=== PATIENT | male | born 1940 | race Caucasian/White ===

== ENCOUNTER 2019-05-31 11:02 | Inpatient (IN) | payer MEDICARE, SELFPAY ==
[2019-05-31] VITALS (14 sets, daily range): BP systolic 90–138; BP diastolic 62–86; PULSE 58–87; RESP 14–22; TEMP 36.6–36.9; O2SAT 95–100; BMI 25.2
--- NOTE | 2019-05-31 | ECHO_ITS ---
Patient Info Name: Maxwell Thomas Age: 79 years : 1940 Gender: Male Ht: 67 in Wt: 161 lbs BSA: 1.87 m2 HR: 89 bpm BP: 131 / 69 mmHg Heart Rhythm: Sinus Rhythm Technical Quality: Good Exam Date: 05/31/2019 3:59 PM Exam Location: [facility] Pulmonary Exam Room: 232 Patient Status: Inpatient Admit Date: 05/31/2019 Staff Ordering Physician: Johnson Escalona MD Medical Support Assistant: Cherelle Garcia RCS Attending Provider: Carlos Enrique Scales MD Referring Physician: Iqra BACK; Exam Type: CA echo doppler color flow Study Info Indications - cad stent mr Complete two-dimensional, color flow and Doppler transthoracic echocardiogram is performed. Summary 1. Left ventricular systolic function is normal, estimated at 65-70%. 2. There is moderate concentric increased left ventricular wall thickness. 3. Left atrial chamber dimension is mildly enlarged. 4. There is severe aortic valve sclerosis. 5. There is severe aortic valve stenosis with a peak velocity of 372 cm/s, mean gradient of 31 mmHg, and aortic valve area of 1.0 cm2. Left Ventricle Left ventricular systolic function is normal, estimated at 65-70%. There is moderate concentric increased left ventricular wall thickness. The left ventricular diastolic function is grade I diastolic dysfunction. Right Ventricle Right ventricular chamber dimension is normal. Left Atria Left atrial chamber dimension is mildly enlarged. Right Atria Right atrial chamber dimension is normal. Aortic Valve The aortic valve is trileaflet. There is severe aortic valve sclerosis. There is severe aortic valve stenosis with a peak velocity of 372 cm/s, mean gradient of 31 mmHg, and aortic valve area of 1.0 cm2. Pulmonic Valve The pulmonic valve is not well visualized. Mitral Valve The mitral valve has normal leaflets and calcified annulus. There is trace mitral valve regurgitation. Tricuspid Valve The tricuspid valve leaflets are normal. Pericardium/Pleural The pericardium appears normal. Aorta The aortic root size at the sinus of Valsalva is normal. Left Ventricular Outflow Tract Name Value Normal LVOT 2D LVOT Diameter 2.1 cm LVOT Doppler LVOT Peak Velocity 104 cm/s LVOT Peak Gradient 4 mmHg LVOT Mean Gradient 2 mmHg LVOT VTI 28 cm LVOT VTI/AV VTI Ratio 0.3 LVOT Stroke Volume 101 ml LVOT CO 15.5 l/min LVOT CI 8.3 l/min/m2 Pulmonic Valve Name Value Normal PV Doppler PV Peak Velocity 125 cm/s PV Peak Gradient 5 mmHg Mitral Valve Name
--- NOTE | ~2019-05-31 | XR_ITS ---
EXAMINATION: XR chest 2V DATE: 05/31/2019 11:24 INDICATION: Chest pain TECHNIQUE: PA and lateral views of the chest are obtained. COMPARISON: 01/07/2019 FINDINGS: The lungs are free of acute opacities. A stable opacity is present in the left upper lobe w hich has been previously evaluated by CT. There is no pleural effusion or pneumothorax. The cardiomed iastinal silhouette is normal. There is moderate thoracic spondylosis. The previously identified larg e bore right subclavian catheter has been removed. IMPRESSION: 1. No acute cardiopulmonary abnormality. 2. Chronic opacity of the left upper lobe, not significantly changed but concerning for malignancy. Reviewed, dictated and finalized at location B. IMPRESSION: 1. No acute cardiopulmonary abnormality. 2. Chronic opacity of the left upper lobe, not significantly changed but concer terence for malignancy.
--- NOTE | 2019-05-31 11:11 | ED.CHESTPAIN ---
HPI - Chest Pain General Chief Complaint: Chest Pain Stated Complaint: chest pain x 3days Time Seen by Provider: 05/31/19 11:08 Source: patient, family and RN notes reviewed Mode of arrival: ambulatory Limitations: no limitations History of Present Illness HPI narrative: A 79 y/o male presents to the ED with worsening, intermittent, lt CP for the past week. He states that his first episode of CP was roughly 1 week ago when he was walking with his . He reports that the pain lasted roughly 5-10 minutes and resolved when he stopped to rest. He notes that this occurred 3 times during that walk. He states that over the past couple days he has had intermittent CP with associated SOB. He reports that this morning the pain got more severe and he became diaphoretic, so he took a Nitro which resolved his symptoms, and then came into the ED. He also notes that he has been taking his Plavix as prescribed but that he hasn't been taking any Aspirin. He denies any N/V/D, fevers, cough, sore throat, rhinorrhea, or nasal congestion. MD complaint: chest pain Pertinent past history: coronary artery disease Onset (ago): week(s) (1) Timing of current episode: episodic and now resolved Onset: during exertion Pain location: left chest Pain radiation: none Relieving factors: nitroglycerin and rest Exacerbating factors: exertion Associated symptoms: diaphoresis (resolved) and dyspnea (resolved) Treatment prior to arrival: nitroglycerin Risk Factors Coronary artery disease risk factors: hyperlipidemia Related Data Home Medications Medication Instructions Recorded Confirmed Rizwana-Nelly Rx 1 tablet PO QNOON 01/07/19 05/31/19 acyclovir 400 mg PO TIDWM 01/07/19 05/31/19 amlodipine 10 mg PO QNOON 01/07/19 05/31/19 atorvastatin 40 mg PO HS 01/07/19 05/31/19 calcitriol 0.25 mcg PO DAILY 01/07/19 05/31/19 cholecalciferol (vitamin D3) 2,000 unit PO QAM 01/07/19 05/31/19 cyanocobalamin (vitamin B-12) 1,000 mcg PO QAM 01/07/19 05/31/19 dexamethasone 20 mg PO WEEKLY 01/07/19 05/31/19 finasteride 5 mg PO HS 01/07/19 05/31/19 pantoprazole 40 mg PO QAM 01/07/19 05/31/19 sennosides-docusate sodium 1 tablet PO QNOON 01/07/19 05/31/19 [Senna-S] bortezomib [Velcade] 0.875 mg SUBCUT WEEKLY 05/31/19 05/31/19 clopidogrel 75 mg PO QNOON 05/31/19 05/31/19 Allergies Allergy/AdvReac Type Severity Reaction Status Date / Time No Known Allergies Allergy Verified 05/31/19 11:14 Review of Systems Review of Systems: All systems reviewed & are unremarkable except as noted in HPI and below Constitutional: Constitutional: Denies fever(s) ENT: Denies nasal congestion, Denies nasal discharge and Denies sore throat Cardiovascular: Cardiovascular: Reports chest pain (lt - resolved) and Reports diaphoresis (resolved) Respiratory: Respiratory: Denies cough and Reports dyspnea (resolved) Gastrointestinal: Gastrointestinal: Denies diarrhea, Denies nausea and Denies vomiting [facility] Past Medical History Medical History (Updated 05/31/19 @ 17:40 by Fabiola Love MD) Benign prostatic hyperplasia Coronary artery disease : Right coronary artery stent 2003. : Drug-eluting stent to proximal LAD 01/08/2019. End-stage renal disease on peritoneal dialysis : Patient of Dr. Vargas Love. GERD (gastroesophageal reflux disease) Hyperlipidemia Hypertension Mass of lung : Left upper lobe mass, stable on imaging. : Just monitoring; has not been biopsied. Multiple myeloma : On weekly subcutaneous injections. : Patient of Dr. Víctor Mitchell. Neuropathy associated with monoclonal protein Osteoarthritis Surgical History Surgical History (Updated 06/04/19 @ 11:24 by Johnson Felix MD) History of herniorrhaphy History of tonsillectomy Hx of CABG S/P AVR (aortic valve replacement) Status post left partial knee replacement Family History Family History (Updated 05/31/19 @ 13:09 by Emely Meneses PA-C) Father Acute myocardial infarction Mother DVT (
--- NOTE | 2019-05-31 11:12 | ECG_ITS ---
Measurements Intervals [place] Rate: 70 P: 71 OK: 159 QRS: 235 QRSD: 132 T: 49 QT: 421 QTc: 457 Interpretive Statements SINUS RHYTHM ATRIAL PREMATURE COMPLEX RIGHT BUNDLE BRANCH BLOCK ABNORMAL ECG Electronically Signed On 05-31-2019 13:03:47 CDT by Elias Metzger D.O.
[2019-05-31 11:24] LABS: Basophils Percent Auto 0.5 % (0.2-1.2); Eosinophils Absolute Auto 0.1 K/mm3 (0-0.3); Eosinophils Percent Auto 1.6 % (0-4.4); Hematocrit 38.8 % (42.0-52.0); Hemoglobin 12.4 g/dL (14.0-18.0); Immature Granulocyte Absolute 0.06 K/mm3 (0.00-0.031); Immature Granulocyte Percent A 0.8 % (0-0.5); Lymphocytes Absolute Auto 0.62 K/mm3 (0.9-3.2); Lymphocytes Percent Auto 8.1 % (18.3-44.2); Mean Corpuscular Hemoglobin 34.5 pg (26-34); Mean Corpuscular Volume 108.1 fl (80-100); Mean Platelet Volume 10.5 fl (7.4-10.4); Monocytes Absolute Auto 0.8 K/mm3 (0.1-0.6); Monocytes Percent Auto 9.8 % (2.6-8.5); Neutrophils Absolute Auto 6.1 K/mm3 (1.3-6.7); Neutrophils Percent Auto 79.2 % (45.5-73.1); Platelet Count Result 215 k/mm3 (150-375); Red Blood Count 3.59 M/mm3 (4.6-6.20); Red Cell Distribution Width 11.9 % (11.5-14.5); White Blood Count 7.7 K/mm3 (4.5-10.0)
--- NOTE | 2019-05-31 11:26 | PC.NURSE ---
PT BACK FROM XRAY ON PRODUCT SAFETY COORDINATOR.
[2019-05-31 11:34] LABS: INR 0.8; Prothrombin Time 11.1 Seconds (11.1-14.7)
[2019-05-31 11:35] LABS: Partial Thromboplastin Time 23.4 SECONDS (22.3-36.8)
[2019-05-31 11:38] LABS: Blood Urea Nitrogen 95 mg/dL (9-20); Calcium 7.3 mg/dL (8.4-10.2); Carbon Dioxide 26 mmol/L (22-30); Chloride 98 mmol/L (98-107); Estimated CRCL calculation 6 ml/min; Estimated Glomerular Filt Rate 6; Glucose 95 mg/dL (75-110); Potassium 3.8 mmol/L (3.4-5.0); Sodium 136 mmol/L (137-145)
[2019-05-31] MEDS: ASPIRIN 81 MG CHEWABLE TABLET 324 MG PO (11:46)
[2019-05-31 11:53] LABS: Troponin I 0.087 ng/mL (0.000-0.034)
[2019-05-31] MEDS: NITROGLYCERIN OINTMENT 1 INCH DOSE TRANSDERM (12:08)
--- NOTE | 2019-05-31 12:36 | PC.NURSE ---
PT REPORT SENT TO IMU.
--- NOTE | 2019-05-31 13:30 | PM.IMHP ---
H&P: HPI History of Present Illness Chief complaint: Chest pain. 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 Since his most recent stent placement, he has had intermittent chest discomfort which he has been attributed to indigestion. He is a very active gentleman, and use to hike up to 12 miles per day. He still walks frequently, and several days ago while out walking he had to stop 3 separate times within 1 mile, resting 5 to 10 minutes each time due to pressure, mainly in the left anterior chest. He was also feeling short of breath at that time. Over the last 2 days, he has had recurrent chest pressure with occasional shortness of breath and sweats today simply well walking around the home. Symptoms are similar to when he was here in January prior to his stent placement. Currently he is not experiencing any discomfort. He denies fever, chills, cold and flu symptoms, palpitations, pleuritic pain, nausea, and vomiting. No lower extremity edema, calf pain, or tenderness. No history of venous thromboembolism. Review of Systems Review of Systems: Narrative: Twelve systems were reviewed with pertinent positives and negatives as per HPI. No fever or chills. No recent cold or flu symptoms. No dysphagia. He has recently switched to peritoneal dialysis, and reports frequent cramps during his treatments. He was helpful he would have left symptoms with that when compared hemodialysis, but he has not noticed such as of yet. Appetite has been good. No nausea, vomiting, or diarrhea. Except as documented, all other systems were reviewed and are negative. [facility] Past Medical History Medical History (Updated 05/31/19 @ 14:10 by Emely Meneses PA-C) Benign prostatic hyperplasia Coronary artery disease : Right coronary artery stent 2003. : Drug-eluting stent to proximal LAD 01/08/2019. End-stage renal disease on peritoneal dialysis : Patient of Dr. Vargas Love. GERD (gastroesophageal reflux disease) Hyperlipidemia Hypertension Mass of lung : Left upper lobe mass, stable on imaging. : Just monitoring; has not been biopsied. Multiple myeloma : On weekly subcutaneous injections. : Patient of Dr. Víctor Mitchell. Neuropathy associated with monoclonal protein Osteoarthritis Surgical History Surgical History (Updated 05/31/19 @ 13:08 by Emely Meneses PA-C) History of herniorrhaphy History of tonsillectomy Status post left partial knee replacement Family History Family History (Updated 05/31/19 @ 13:09 by Emely Meneses PA-C) Father Acute myocardial infarction Mother DVT (deep venous thrombosis) Sibling Breast cancer Social History Social History (Updated 05/31/19 @ 14:04 by Emely Meneses PA-C) Social History: Mr. Thomas is and lives with his in [place]. 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 He has enjoyed hiking for many years, and is he and his school to move to the [facility] sometime. He is a lifelong nonsmoker and denies alcohol and drug abuse. He has a modified code, no intubation. Spiritual care concerns: No Agree to blood products: Yes Meds Home Medications and Allergies Home Medications Medication Instructions Recorded Confirmed Type Rizwana-Nelly Rx 1 tablet PO DAILY 01/07/19 01/07/19 History acyclovir 400 mg PO TID 01/07/19 01/07/19 History amlodipine 10 mg PO DAILY 01/07/19 01/07/19 History atorvastatin 40 mg PO DAILY 01/07/19 01/07/19 History calcitriol 0.25 mcg PO HS 01/07/19 01/07/19 History cholecalciferol (vitamin D3) 2,000 unit PO DAILY 01/07/19 01/07/19 History cyanocobal
[2019-05-31 15:15] LABS: Troponin I 0.103 ng/mL (0.000-0.034)
--- NOTE | 2019-05-31 15:44 | PM.CNCAR ---
Assessment and Plan Additional Plan 79-year-old man with coronary artery disease, remote history of RCA stenting and with fairly recent stenting of the proximal LAD. He enters the hospital with symptoms of dyspnea and chest pain I do not see any compelling evidence of ACS on ECG and troponins. His other major comorbidity of course is multiple myeloma with end-stage kidney disease on dialysis. Physical exam does suggest that he may have significant mitral valve disease. Will obtain a 2D Doppler echocardiogram this afternoon and further recommendations will be pending completion of that exam. Johnson Escalona MD [facility] History of Present Illness History of Present Illness Consult date/time: Date of service:05/31/19 15:44 Reason For Visit: Chest pain. Narrative: This is an 79-year-old man that I have a known history with with coronary artery disease I am seeing at the request of the hospitalist because of dyspnea and some chest pain for which he was readmitted to the hospital earlier this morning. He has a history of CAD with PCI with stenting to his mid right coronary artery in the remote past. He was stable for many years and did not have any significant difficulty and then his health declined recently when he developed unfortunately multiple myeloma and he has gone on to develop end-stage renal failure with myeloma kidney disease and is on hemodialysis. He was hospitalized here at [facility] in January of 2019 with symptoms of chest pain that were worrisome for ischemia and he was brought back for follow-up coronary angiography. He did have a new high-grade proximal LAD stenosis as well as modest RCA and mid to distal circumflex disease. The LAD lesion was felt to be the culprit for his symptomatology and this was treated successfully with a drug-eluting stent. At that time I report demonstrated that he had normal looking LV function but that I was concerned that he had catheter-induced mitral valve regurgitation. In any event he did well clinically and returns to the hospital now with symptoms of some exertional dyspnea as well as some exertional chest pain off and on as well. He states that he called our office this morning to try to get advice as to how to proceed with this particular the in the bullock virus outbreak. His try to avoid coming to the emergency room but he states that he could not get a response to his phone call so he did come to the ED to be evaluated and he was subsequently admitted. His EKG does not show any acute ST segment deviation. He does have lab data consistent with end-stage renal failure and minimal troponin elevation particularly given the fact that he has end-stage renal failure. His primary care physician is at the [facility]. When I entered the room to see him for this consultation he is resting comfortably in bed and appears to be in no distress of any kind. Review of Systems Constitutional: Constitutional: Reports no additional constitutional complaints Eyes: Eyes: Reports no additional eye complaints ENT: Reports system reviewed and no additional complaints, except as documented Cardiovascular: Cardiovascular: Reports as per HPI and Reports chest pain Respiratory: Respiratory: Reports dyspnea on exertion Gastrointestinal: Gastrointestinal: Reports no additional gastrointestinal complaints Musculoskeletal: Musculoskeletal: Reports no additional musculoskeletal complaints Integumentary/Breasts: Skin/Breast: Reports system reviewed and no additional complaints, except as docu Neurologic: Reports system reviewed and no additional complaints, except as documented Hematologic/Lymphatic: Hematologic/Lymphatic: Reports no additional hematologic/lymphatic complaints Allergic/Immunologic: Allergic/Immunologic: Reports no additional allergic/immunologic complaints PMFSH Past Medical History Medical History (Updated 05/31/19 @ 14:10 by Emely Meneses PA-C) Benign prostatic hyperplasia
[2019-05-31] MEDS: AMLODIPINE BESYLATE 5 MG TABLET 10 MG PO (17:06)
[2019-05-31] MEDS: ACYCLOVIR 400 MG TABLET PO (17:06)
[2019-05-31] MEDS: FINASTERIDE 5 MG TABLET PO (17:07)
[2019-05-31] MEDS: VITAMIN B CMPLX/VIT C/FOLIC AC 1 CAPSULE 1 CAP PO (17:07)
[2019-05-31] MEDS: SENNA/DOCUSATE SODIUM TABLET 1 TAB PO (17:07)
[2019-05-31] MEDS: CLOPIDOGREL BISULFATE 75 MG TABLET PO (17:07)
--- NOTE | 2019-05-31 17:38 | PM.CNNEP ---
Assessment and Plan Assessment and plan (1) End-stage renal disease on peritoneal dialysis: Code(s): N18.6 - End stage renal disease; Z99.2 - Dependence on renal dialysis Status: Chronic (2) Chest pain: Code(s): R07.9 - Chest pain, unspecified Status: Acute (3) Hypertension: Qualifiers: Hypertension type: essential hypertension Qualified Code(s): I10 - Essential (primary) hypertension Code(s): I10 - Essential (primary) hypertension Status: Acute (4) Multiple myeloma: Qualifiers: Multiple myeloma remission status: unspecified Qualified Code(s): C90.00 - Multiple myeloma not having achieved remission Code(s): C90.00 - Multiple myeloma not having achieved remission Status: Acute Assessment and Plan: . Additional Plan Maxwell has end-stage renal disease and is on peritoneal dialysis. I will continue his outpatient peritoneal dialysis prescription while he remains hospitalized here [facility]. His electrolytes, volume status, and clearance appear to be acceptable and although his BUN is elevated, I suspect this is due to the fact he is on chronic steroid therapy for treatment of his multiple myeloma rather than overt uremia. Cardiology has been consulted with regard to his chest pain symptoms with recommendations noted. His CKD parameters with regard to his hemoglobin, hematocrit, calcium, phosphorus...etc. all appear to be within range and I would continue his home medication regimen as is to ensure these parameters remained stable. If necessary, I will adjust his peritoneal dialysis prescription to compensate/optimize these parameters as deemed necessary. I will continue follow patient with you while remains hospitalized and make further recommendations during his hospital course. Thank you for allowing me to participate in the care this patient. History of Present Illness Reason for Consult Consult date: 05/31/19 Reason for consult: end stage renal disease Chief Complaint Chief complaint: Chest pain. History of Present Illness Narrative: The patient is a 79-year-old male with a past medical history as outlined below who presented to the [facility] ER with complaints of chest pain. According to the patinet, he has had intermittent chest discomfort for the last few months which he assumed was related to GERD/indigestion. Furthermore, he has noted that his level of physical activity has been diminished as well -- he usually walks frequently but has noted he needs to rest with walking due to left chest pressure in association with shortness of breath. In the last few days, he reports recurrent chest pressure with occasional shortness of breath with minimal exertional activities. The constellation of symptoms he has been having is similar to when he required cardiac stent placement. He denies any other systemic symptoms with regard to fever, chills, flu symptoms, palpitations, pleuritic pain, nausea, or vomiting. Renal consultation was requested due to his end-stage renal disease. The patient is quite familiar to me as I take care of his end-stage renal disease needs. The patient normally does nightly peritoneal dialysis under my care through [facility]. From a dialysis perspective, he has been doing reasonably well. He recently transitioned from back-up hemodialysis to peritoneal dialysis after his recent cardiac stent placement January. At that time, his PD catheter was not working very well but given the fact he required anti platelet therapy for his recently placed stent, surgical revision of his PD catheter was not recommended at that time. Eventually, after a sufficient amount of waiting, he underwent surgical revision of his PD catheter placement has been resumed on peritoneal dialysis therapy. He recently had his tunneled dialysis catheter removed doing it and given the necessity was not needed as he wa
[2019-05-31 17:41] LABS: Troponin I 0.106 ng/mL (0.000-0.034)
[2019-05-31] MEDS: METOPROLOL TARTRATE 12.5 MG TABLET PO (20:24)
[2019-05-31] MEDS: ATORVASTATIN 40 MG TABLET PO (20:25)
[2019-05-31] MEDS: ACETAMINOPHEN 325 MG TABLET 650 MG PO (23:28)
[2019-05-31 23:31] LABS: Hepatitis B Surface Antigen Negative (Negative)
[2019-06-01] VITALS (12 sets, daily range): BP systolic 111–144; BP diastolic 58–84; PULSE 62–89; RESP 14–20; TEMP 36.7–36.8; O2SAT 96–99
[2019-06-01 04:38] LABS: Hepatitis B Surface Anti Res Indeterminate
[2019-06-01 04:46] LABS: Hematocrit 33.6 % (42.0-52.0); Hemoglobin 11.1 g/dL (14.0-18.0); Mean Corpuscular Hemoglobin 34.9 pg (26-34); Mean Corpuscular Volume 105.7 fl (80-100); Mean Platelet Volume 10.1 fl (7.4-10.4); Platelet Count Result 189 k/mm3 (150-375); Red Blood Count 3.18 M/mm3 (4.6-6.20); Red Cell Distribution Width 11.8 % (11.5-14.5); White Blood Count 5.6 K/mm3 (4.5-10.0)
[2019-06-01 04:47] LABS: Hepatitis B Surface Antigen 0.05 S/C
[2019-06-01 05:03] LABS: Blood Urea Nitrogen 86 mg/dL (9-20); Calcium 7.3 mg/dL (8.4-10.2); Carbon Dioxide 27 mmol/L (22-30); Chloride 102 mmol/L (98-107); Estimated CRCL calculation 6 ml/min; Estimated Glomerular Filt Rate 6; Glucose 107 mg/dL (75-110); Magnesium 1.5 mg/dL (1.6-2.3); Phosphorus 7.6 mg/dL (2.5-4.5); Potassium 3.4 mmol/L (3.4-5.0); Sodium 135 mmol/L (137-145)
[2019-06-01] MEDS: ACYCLOVIR 400 MG TABLET PO (08:57)
[2019-06-01] MEDS: calcitrioL 0.25 MCG CAPSULE PO (08:58)
[2019-06-01] MEDS: CHOLECALCIFEROL 1,000 UNIT TABLET 2000 UNITS PO (08:58)
[2019-06-01] MEDS: CYANOCOBALAMIN 1,000 MCG TABLET 1000 MCG PO (08:58)
[2019-06-01] MEDS: PANTOPRAZOLE 40 MG TABLET PO (08:58)
[2019-06-01] MEDS: METOPROLOL TARTRATE 12.5 MG TABLET PO (08:59)
[2019-06-01] MEDS: MAGNESIUM SULF 1 GM/D5W 100 ML 1 GM/100 ML BAG IVPB (08:59)
[2019-06-01] MEDS: POTASSIUM CHLORIDE 20 MEQ PACKET (FOR LIQUID) PO (09:01)
[2019-06-01] MEDS: ASPIRIN 81 MG CHEWABLE TABLET PO (09:02)
--- NOTE | 2019-06-01 10:47 | PM.PNNEP ---
Progress Note: A&P Assessment and Plan (1) End-stage renal disease on peritoneal dialysis: Code(s): N18.6 - End stage renal disease; Z99.2 - Dependence on renal dialysis Status: Chronic Assessment and Plan: continue CCPD while hospitalized electrolytes, volume status, and clearance acceptable elevated BUN more a manifestation of chronic steroid therapy (for treatment of myeloma) rather than poor clearance of uremic toxins (2) Chest pain: Code(s): R07.9 - Chest pain, unspecified Status: Acute Assessment and Plan: seems unrelated to ACS Echo demonstrates significant/severe aortic stenosis - etiology of admission symptoms(?) Cardiology following evaluation to AVR needed(?) (3) Hypertension: Qualifiers: Hypertension type: essential hypertension Qualified Code(s): I10 - Essential (primary) hypertension Code(s): I10 - Essential (primary) hypertension Status: Acute Assessment and Plan: well controlled at this time follow trend of hemodynamics (4) Multiple myeloma: Qualifiers: Multiple myeloma remission status: unspecified Qualified Code(s): C90.00 - Multiple myeloma not having achieved remission Code(s): C90.00 - Multiple myeloma not having achieved remission Status: Acute Assessment and Plan: follow with Dr. Mitchell on therapy with Velcade and dexamethasone Will continue to follow. Subjective Date/time seen: 06/01/19 10:47 Tolerating peritoneal dialysis overnight without any issue or problems (seen on PD earlier this AM at ~ 9:30AM); appears to be resting without any apparent distress; no other events overnight. Exam Narrative: Exam Narrative: General: WD/WN male in NAD Heart: normal S1 and S2; no rub Lungs: clear to auscultation Abdomen: soft, nontender, nondistended, positive bowel sounds Extremities: no cyanosis or clubbing; no edema Skin: warm and dry Objective Data Vital Signs Vital Signs: Vital Signs Temp Pulse Resp BP Pulse Ox 06/01/19 08:59 67 06/01/19 08:19 36.8 C 66 20 133/60 96 06/01/19 07:59 36.8 C 67 14 133/60 06/01/19 06:00 70 06/01/19 04:00 36.7 C 89 20 111/63 97 06/01/19 02:00 66 06/01/19 00:00 66 05/31/19 23:43 36.8 C 67 20 90/62 L 95 05/31/19 22:23 36.6 C 70 20 103/86 05/31/19 22:00 65 05/31/19 20:24 70 05/31/19 20:00 69 05/31/19 19:32 36.6 C 79 20 103/86 97 05/31/19 18:00 87 05/31/19 16:00 36.6 C 61 20 138/65 97 05/31/19 14:00 58 L 05/31/19 13:34 36.9 C 63 20 131/69 100 05/31/19 13:03 72 18 102/63 97 05/31/19 12:09 66 16 122/80 97 05/31/19 11:13 73 14 97 05/31/19 11:07 36.6 C 71 22 H 135/71 96 Intake/Output Intake/Output: Intake & Output 05/29/19 05/30/19 05/31/19 06/01/19 23:59 23:59 23:59 23:59 Intake Total 350 Output Total 0 947 Balance 0 -597 Meds/Results Medications: Active Medications Generic Name Dose Route Start Last Admin Trade Name Freq PRN Reason Stop Dose Admin Acetaminophen 650 mg 05/31/19 21:32 05/31/19 23:28 Tylenol Tablet PO 650 mg Q6H PRN Administration Mild Pain (1-3) or Fever Acyclovir 400 mg 05/31/19 17:00 06/01/19 08:57 Zovirax Po PO 400 mg TIDWM FARIHA Administration Amlodipine Besylate 10 mg 05/31/19 12:00 05/31/19 17:06 Norvasc PO 10 mg NOON FARIHA Administration Aspirin 81 mg 06/01/19 08:00 06/01/19 09:02 Aspirin Chewable PO 81 mg DAILY@0800 FARIHA Administration Atorvastatin Calcium 40 mg 05/31/19 21:00 05/31/19 20:25 Lipitor PO 40 mg HS FARIHA Administration Calcitriol 0.25 mcg 06/01/19 09:00 06/01/19 08:58 Rocaltrol PO 0.25 mcg DAILY FARIHA Administration Clopidogrel Bisulfate 75 mg 05/31/19 12:00 05/31/19 17:07 Plavix PO 75 mg NOON FARIHA Administration Cyanocobalamin 1,000 mcg 06/01/19 09:00 06/01/19 08:58
--- NOTE | 2019-06-01 13:02 | WPDMODSED ---
Moderate Sedation Note-Pt Data Patient Data Diagnosis: coronary artery disease with previous PCI to RCA and LAD moderate to severe aortic valve stenosis by ECHO and physical exam symptoms of exertional dyspnea end-stage renal disease on dialysis Present Complaint: 79-year-old man with above-described cardiac history presenting with CAPONE and occasional chest pain. Has had PCIs done to RCA and LAD. Now also has evidence of significant aortic valve stenosis. Principal comorbidity is end-stage renal disease with dialysis and multiple myeloma with renal disease Procedure to be performed/Plan: right left heart catheterization Allergies Allergy/AdvReac Type Severity Reaction Status Date / Time No Known Allergies Allergy Verified 05/31/19 11:14 Home Medications Medication Instructions Recorded Confirmed Type Rizwana-Nelly Rx 1 tablet PO QNOON 01/07/19 05/31/19 History acyclovir 400 mg PO TIDWM 01/07/19 05/31/19 History amlodipine 10 mg PO QNOON 01/07/19 05/31/19 History atorvastatin 40 mg PO HS 01/07/19 05/31/19 History calcitriol 0.25 mcg PO DAILY 01/07/19 05/31/19 History cholecalciferol (vitamin D3) 2,000 unit PO QAM 01/07/19 05/31/19 History cyanocobalamin (vitamin B-12) 1,000 mcg PO QAM 01/07/19 05/31/19 History dexamethasone 20 mg PO WEEKLY 01/07/19 05/31/19 History finasteride 5 mg PO HS 01/07/19 05/31/19 History pantoprazole 40 mg PO QAM 01/07/19 05/31/19 History sennosides-docusate sodium 1 tablet PO QNOON 01/07/19 05/31/19 History [Senna-S] metoprolol tartrate 12.5 mg PO Q12HR #30 tablet 01/12/19 05/31/19 Rx nitroglycerin [Nitrostat] 0.4 mg SUBLINGUAL DIRECTED PRN 01/12/19 05/31/19 Rx #25 tablet bortezomib [Velcade] 0.875 mg SUBCUT WEEKLY 05/31/19 05/31/19 History clopidogrel 75 mg PO QNOON 05/31/19 05/31/19 History Current Medications: Active Medications Acetaminophen (Tylenol Tablet) 650 mg PO Q6H PRN PRN Reason: Mild Pain (1-3) or Fever Last Admin: 05/31/19 23:28 Dose: 650 mg Documented by: Acyclovir (Zovirax Po) 400 mg PO TIDWM [facility] Last Admin: 06/01/19 08:57 Dose: 400 mg Documented by: Amlodipine Besylate (Norvasc) 10 mg PO NOON [facility] Last Admin: 05/31/19 17:06 Dose: 10 mg Documented by: Aspirin (Aspirin Chewable) 81 mg PO DAILY@0800 [facility] Last Admin: 06/01/19 09:02 Dose: 81 mg Documented by: Atorvastatin Calcium (Lipitor) 40 mg PO HS [facility] Last Admin: 05/31/19 20:25 Dose: 40 mg Documented by: Calcitriol (Rocaltrol) 0.25 mcg PO DAILY [facility] Last Admin: 06/01/19 08:58 Dose: 0.25 mcg Documented by: Clopidogrel Bisulfate (Plavix) 75 mg PO NOON [facility] Last Admin: 05/31/19 17:07 Dose: 75 mg Documented by: Cyanocobalamin (Vitamin B-12 Tab) [facility] [place] Admin: 06/01/19 08:58 Dose: 1,000 mcg Documented by: Finasteride (Proscar) 5 mg PO DAILY@1700 [facility] Last Admin: 05/31/19 17:07 Dose: 5 mg Documented by: Metoprolol Tartrate (Lopressor) 12.5 mg PO Q12HR [facility] Last Admin: 06/01/19 08:59 Dose: 12.5 mg Documented by: Nitroglycerin (Nitrostat Subl 0.4 Mg (1/150)) 0.4 mg SUBLINGUAL Q5MIN PRN PRN Reason: Chest Pain Pantoprazole Sodium (Protonix) [facility] [place] Admin: 06/01/19 08:58 Dose: 40 mg Documented by: Senna/Docusate Sodium (Senokot S Tablet) 1 tab PO NOON [facility] Last Admin: 05/31/19 17:07 Dose: 1 tab Documented by: Vitamin B Complex/Folic Acid (Nephrocaps Softgel) 1 cap PO NOON [facility] Last Admin: 05/31/19 17:07 Dose: 1 cap Documented by: Vitamin D (Vitamin D) 2,000 [facility] [place] Admin: 06/01/19 08:58 Dose: 2,000 unit Documented by: Sedation/Anesthesia: No previous sedation/anesthesia problems (including family history). [facility] Past Medical History Medical History (Updated 05/31/19 @ 17:40 by Fabiola Love MD) Benign prostatic hyperplasia Coronary artery disease : Right coronary artery stent 2003. : Drug-eluting stent to proximal LAD 01/08/2019. End-stage renal disease on peritoneal dialysis : Patient of
--- NOTE | 2019-06-01 14:16 | WPDCARDPROC ---
Cardiac Cath Procedure Note Date of procedure:: 06/01/19 Performing physician:: Johnson Escalona MD Indication:: unstable anginal-type chest pain with CAPONE Brief clinical history:: patient with history of coronary artery disease remote history of stenting of the RCA and recent stenting of the LAD approximately 4 months ago. The patient presented with a syndrome of accelerating exertional dyspnea with chest pain and by physical exam and echo appears to have significant aortic valve stenosis. For this reason right left heart catheterization has been recommended. The patient also has end-stage renal disease and is currently on peritoneal dialysis Procedure Procedure performed:: right and left heart catheterization Sedation/Medication given:: fentanyl 50 mg Versed 2 mg case start time 1:39 p.m. case end time 2:04 p.m. sedation provided by Flavia Garcia RN, trained observer Access site:: right femoral artery and vein Estimated blood loss:: 15-20 cc Procedure note:: patient was brought to the cardiac catheterization lab in the postabsorptive state where the right femoral triangle was prepared in the usual fashion. Anesthesia was provided with 1% lidocaine infiltrated locally. Using the modified Seldinger technique the right femoral artery was punctured and a 6 Kenyan vascular sheath was placed after this a 7 Kenyan sheath was placed into the femoral vein. Right heart catheterization was then carried out using a balloon tip Girard-Chilo catheter measuring right-sided hemodynamics and determining thermodilution cardiac outputs. Following removal of Girard-Chilo catheter a double-lumen pigtail catheter was placed into the arterial circulation and into the ascending aorta. A both lumens were flushed and the catheter was placed across the stenotic aortic valve into the left ventricle Simultaneous pressures were then measured into the LV and central aorta. the aortic valve area was calculated and pullback was performed across the valve. Since the patient had left ventriculography done 4 months ago an echocardiography during this hospitalization demonstrating normal LV function I did not inject the LV again during this case. The left coronary artery was then engaged and injected using a 5 Kenyan FL4 diagnostic coronary catheter. The right coronary artery was engaged and injected using a 5 Kenyan JR4 catheter. Following this the cineangiograms were reviewed and the case was terminated. The sheath was sutured into position the patient will be taken to the holding area and systemically heparinized. Findings:: Hemodynamics: Right atrium 7 mmHg right ventricle 41 over 5, pulmonary artery 41 over 20 mean pulmonary wedge pressure 14, central aorta 126/62 left ventricle 160/0 end-diastolic 15. Thermodilution cardiac output is 5.57 liters/minute giving an index of 3. Meet mean aortic valve gradient is 29 mmHg aortic valve area calculates to 1.17 cm2 the left main coronary artery is medium in caliber there is a high-grade 90% stenosis in the distal aspect of the left main. This lesion was not present in January of 2019 the LAD is of medium caliber vessel extending down to around the apex. The proximal stented segment in the LAD is widely patent. There is MISSY 3 flow throughout the vessel. The circumflex is a medium caliber artery giving rise to small marginal branches there is a stenosis in the distal circumflex prior to the bifurcation of 2 distal branches of about 80%. The right coronary is a large caliber vessel with a stent in the 2nd portion which is nicely patent there is hazy complex looking stenosis in the RCA just distal to the stented area. Angiographically is appears to be a 60-70% lesion. The PDA and PL branches are free of significant lesions. Conclusion:: Coronary artery disease with short interval development of high-grade distal left main stenosis compared with angiography that was performed in January of 2019. Pat
[2019-06-01] MEDS: HEPARIN SOD/D5W 100 UNITS/ML 25,000 UNITS/250 ML BAG 10 UNITS (15:47)
--- NOTE | 2019-06-22 14:35 | PM.TDS ---
Transfer Discharge Sum: Prov Provider Date of admission: 06/01/19 15:24 Transfer date 06/01/19 Transfer to [facility]. Accepting physician is Dr. Johnson Saini. Transfer order placed by Cardiology No visit by Hospitalist team on 06/01/19 as patient was transferred to OSH prior to being seen. Primary care physician: Johnson Felix MD Admitting clinician: Carlos Enrique Scales MD Consults: 05/31/19 Consult to Physician Routine Comment: OFFICE NOTIFIED OF CONSULT Consulting Provider: Fabiola Love bail bond agent/MD group to consult: Ivan Reason for consultation: PD Has provider been notified: Yes 05/31/19 12:28 Consult to Physician Routine Comment: Consulting Provider: Johnson Escalona Reason for consultation: Unstable Angina Has provider been notified: Yes DS: Diagnosis Admitting Diagnosis Admitting Diagnosis: Atherosclerosis of [place] coronary artery of transplanted heart with unstable angina Transfer Discharge Sum: Med Medications Active and Home Medications: Home Medications Rizwana-Nelly Rx 1 tablet PO QNOON 01/07/19 [History Confirmed 05/31/19] acyclovir 400 mg PO TIDWM 01/07/19 [History Confirmed 05/31/19] amlodipine 10 mg PO QNOON 01/07/19 [History Confirmed 05/31/19] atorvastatin 40 mg PO HS 01/07/19 [History Confirmed 05/31/19] calcitriol 0.25 mcg PO DAILY 01/07/19 [History Confirmed 05/31/19] cholecalciferol (vitamin D3) 2,000 unit PO QAM 01/07/19 [History Confirmed 05/31/19] cyanocobalamin (vitamin B-12) 1,000 mcg PO QAM 01/07/19 [History Confirmed 05/31/19] dexamethasone 20 mg PO WEEKLY 01/07/19 [History Confirmed 05/31/19] finasteride 5 mg PO HS 01/07/19 [History Confirmed 05/31/19] pantoprazole 40 mg PO QAM 01/07/19 [History Confirmed 05/31/19] sennosides-docusate sodium [Senna-S] 1 tablet PO QNOON 01/07/19 [History Confirmed 05/31/19] metoprolol tartrate 12.5 mg PO Q12HR #30 tablet 01/12/19 [Rx Confirmed 05/31/19] nitroglycerin [Nitrostat] 0.4 mg SUBLINGUAL DIRECTED PRN #25 tablet 01/12/19 [Rx Confirmed 05/31/19] bortezomib [Velcade] 0.875 mg SUBCUT WEEKLY 05/31/19 [History Confirmed 05/31/19] clopidogrel 75 mg PO QNOON 05/31/19 [History Confirmed 05/31/19] alprazolam 0.25 mg tablet 0.25 mg PO TID PRN #30 tablet 06/15/19 [Rx] furosemide 40 mg tablet 40 mg PO QAM #90 tablet 06/15/19 [Rx] ondansetron HCl 4 mg tablet 4 mg PO Q8H PRN #30 tablet 06/15/19 [Rx] oxycodone-acetaminophen 5 mg-325 mg tablet 1 tablet PO Q4H PRN #30 tablet 06/15/19 [Rx] Transfer Discharge Sum: Hosp Hospital Course Hospital course: Maxwell Thomas is a 79 year old male with coronary artery disease status post stent to the right coronary artery in 2003 and drug-eluting stent to the proximal LAD in January 2019, multiple myeloma currently on oral chemotherapy, and end-stage renal disease secondary to myeloma kidney on peritoneal dialysis who presented to the emergency department on 05/30 for evaluation of chest pain. Has had intermittent chest discomfort since his most recent stent placement; he attributed this to indigestion. Patient had noted that has had increased left anterior chest pressure when walking, stopping several times within 1 mile. The prior 2 days to arrival, he has had recurrent chest pressure with occasional SOB and sweats simply while walking around his home. Symptoms were simlar to when he was admitted in January prior to his stent placement. Please see H&P for further details Presenting VS: Temp Pulse Resp BP Pulse Ox 97.9 F 71 22 H 135/71 96 05/31/19 11:07 05/31/19 11:07 05/31/19 11:07 05/31/19 11:07 05/31/19 11:07 Presenting Pertinent labs: Serial troponins: 0.087, 0.103, 0.106. Cr 8.20, BUN 95. Hep Bs ATG negative. Hep Bs antibody indeterminate. CBC, coags, chemistry otherwise unremarkable. Micro: BC negative after 5 days x 2. MRSA screen negative Imaging: Chest X-Ray 05/31/19 11:26 IMPRESSION: 1. No acute cardiopulmonary abnormality. 2. Chronic opacity of the left upper lobe,
== END 2019-06-01 15:30 | disposition short-term general hospital (02) | DRG 286 ==
LOC: ANHED 13:17 → ANHIMU 13:25
PROVIDERS: Internal Medicine Nephrology; Physician Assistant; Admitting Provider Internal Medicine; Emergency Provider Emergency Medicine; PCP Family Medicine; Visit Provider Specialist
PROC: 4A023N8 Measurement of Cardiac Sampling and Pressure, Bilateral, Percutaneous Approach (ICD-10-PCS; CPT 93453; principal; 2019-06-01 13:00)
DX: I25.750 Atherosclerosis of native coronary artery of transplanted heart with unstable angina (principal); N18.6 End stage renal disease; C90.00 Multiple myeloma not having achieved remission; I12.0 Hypertensive chronic kidney disease with stage 5 chronic kidney disease or end stage renal disease; I35.0 Nonrheumatic aortic (valve) stenosis; N40.0 Benign prostatic hyperplasia without lower urinary tract symptoms; M19.90 Unspecified osteoarthritis, unspecified site; G62.9 Polyneuropathy, unspecified; E78.5 Hyperlipidemia, unspecified; K21.9 Gastro-esophageal reflux disease without esophagitis; Z95.5 Presence of coronary angioplasty implant and graft; Z99.2 Dependence on renal dialysis
CPT/HCPCS: 36415; 71046; 80048; 83735; 84100; 84484; 85025; 85027; 85610; 85730; 86706; 87040; 87081; 87340; 90945; 93005; 93306; 93460; 99285; A9270; C1887; C1894; J1644; J2250; J3010; J3475; J7040

== ENCOUNTER 2019-07-14 12:47 | Outpatient (CLI) | payer MEDICARE, SELFPAY ==
--- NOTE | ~2019-07-14 | XR_ITS ---
XR abdomen/kub 1V 07/14/2019 13:10 Indication: Complication of peritoneal dialysis Procedure: KUB Comparison: Comparison to multiple prior studies sequentially, with oldest reviewed study dated 09/03. Findings: Bowel pattern is nonobstructive. There is a peritoneal dialysis catheter coiled to the left of midline. 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 No suspected urolithiasi s. Impression: 1: No acute abdominal abnormality. Reviewed, dictated and finalized at location A. Impression: 1: No acute abdominal abnormality.
== END 2019-07-14 12:48 | disposition home or self-care (01) ==
LOC: ANHIMG 12:55
PROVIDERS: PCP Family Medicine; Visit Provider Internal Medicine Nephrology
DX: T85.691D Other mechanical complication of intraperitoneal dialysis catheter, subsequent encounter (principal)
CPT/HCPCS: 74018

== ENCOUNTER 2019-08-11 16:10 | Outpatient (CLI) | payer MEDICARE, SELFPAY ==
[2019-08-11 16:50] LABS: Potassium 6.2 mmol/L (3.4-5.0)
== END 2019-08-11 16:11 | disposition home or self-care (01) ==
PROVIDERS: PCP Family Medicine; Visit Provider Internal Medicine Medical Oncology
DX: E87.5 Hyperkalemia (principal)
CPT/HCPCS: 36415; 84132

== ENCOUNTER 2019-09-02 15:36 | Outpatient (CLI) | payer MEDICARE, OTHER, SELFPAY ==
--- NOTE | ~2019-09-02 | XR_ITS ---
EXAMINATION: XR abdomen/kub 1V INDICATION: Mechanical complication of intraperitoneal dialysis catheter TECHNIQUE: Supine views of the abdomen were obtained on 2 radiographs. COMPARISON: 07/14/2019 FINDINGS: The peritoneal dialysis catheter is now seen to coil in the left pelvis. There is kinking o f the catheter where projects over the left iliac wing, possibly at the skin insertion. The bowel gas pattern is normal. There are no dilated loops of bowel. Moderate hip osteoarthritis is noted. 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 IMPRESSION: 1. Peritoneal dialysis catheter now in the left pelvis with possible kinking at the skin. Reviewed, dictated and finalized at location A.
== END 2019-09-02 15:37 | disposition home or self-care (01) ==
PROVIDERS: PCP Family Medicine; Visit Provider Internal Medicine Nephrology
DX: T85.691D Other mechanical complication of intraperitoneal dialysis catheter, subsequent encounter (principal)
CPT/HCPCS: 74018

== ENCOUNTER 2020-01-20 00:42 | Emergency (ER) | payer MEDICARE, OTHER, SELFPAY ==
--- NOTE | ~2020-01-20 | CT_ITS ---
EXAMINATION: CT abdomen pelvis wo con EXAM DATE: 01/20/2020 01:35 INDICATION: Low abdominal pain. TECHNIQUE: Spiral CT of the abdomen and pelvis was performed without contrast. Axial, coronal and s agittal images were reviewed. The dose-length product (DLP) for this examination was 295.55 mGy-cm. The exposure was tailored according to patient size (auto mA exposure control), and iterative recons truction (ASIR) was used as additional dose reduction technique. Comparison is made to prior examinat ion from 04/25/2010. FINDINGS: Large amount of free intraperitoneal gas, uncertain source but most likely perforated viscu s. Generalized mesenteric, body wall edema, anasarca. There is small to moderate amount of perihepati c ascites. The liver, spleen, adrenal glands and pancreas are unremarkable. Gallbladder is unremarka ble. No biliary obstruction. There is no nephrolithiasis or hydronephrosis. There is right renal hi lar aneurysm measuring 1.5 cm, was about 1.3 cm in 2010. There is moderate prostatomegaly. The bladd er is unremarkable. There is no retroperitoneal or pelvic lymphadenopathy. There is extensive scat tered arterial sclerotic disease. The appendix is normal. There is small to moderate-sized gastroesophageal hiatal hernia. There is m oderate amount of colonic stool. The heart is normal in size. There are no pericardial or pleural effusions. The lung bases are unremarkable. There are no osteoblastic or osteolytic lesions identi fied. IMPRESSION: 1. Large amount of free intraperitoneal gas, uncertain source but possibly colo given moderate colon ic stool. 2. Anasarca, mesenteric edema, ascites. 3. Right renal hilar aneurysm. 4. Small to moderate hiatal hernia. STAT RAD radiologist phoned, discussed this case with clinician as per documentation in their report, which was faxed and scanned into PACS with this exam. Reviewed, dictated and finalized at location A. O MECHANIC IMPRESSION: 1. Large amount of free intraperitoneal gas, uncertain source but possibly col o given moderate colonic stool. 2. Anasarca, mesenteric edema, ascites. 3. Right renal hilar aneurysm. 4. Small to moderate hiatal hernia. STAT RAD radiologist phoned, discussed this case with clinician as per document ation in their report, which was faxed and scanned into PACS with this exam.
[2020-01-20 00:52] VITALS: BP 155/57; PULSE 69; RESP 21; TEMP 36.5; O2SAT 93
--- NOTE | 2020-01-20 01:07 | ED.GENADULT ---
HPI - General Adult General Chief complaint: Abdominal Pain Stated complaint: abd pain Time Seen by Provider: 01/20/20 00:54 History of Present Illness HPI narrative: Patient is an 79-year-old male with history of multiple myeloma and hemodialysis dependence who presents ER with sudden onset lower abdominal pain. Began 2 hours prior to arrival. Sharp and located in the lower abdomen and radiates from the right to left side. No nausea or vomiting. Symptoms worse with direct palpation or with movement. No urinary symptoms. Reports history of chronic constipation has been manually disimpacted himself. He thinks it may be related to this. No fevers or chills or sweats. No cough. Related Data Home Medications Medication Instructions Recorded Confirmed Rizwana-Nelly Rx 1 tablet PO QNOON 01/07/19 12/01/19 acyclovir 400 mg PO TIDWM 01/07/19 12/01/19 amlodipine 10 mg PO QNOON 01/07/19 12/01/19 atorvastatin 40 mg PO HS 01/07/19 12/01/19 calcitriol 0.25 mcg PO DAILY 01/07/19 12/01/19 cholecalciferol (vitamin D3) 2,000 unit PO QAM 01/07/19 12/01/19 cyanocobalamin (vitamin B-12) 1,000 mcg PO QAM 01/07/19 12/01/19 dexamethasone 20 mg PO WEEKLY 01/07/19 12/01/19 finasteride 5 mg PO HS 01/07/19 12/01/19 pantoprazole 40 mg PO QAM 01/07/19 12/01/19 sennosides-docusate sodium 1 tablet PO QNOON 01/07/19 12/01/19 [Senna-S] bortezomib [Velcade] 0.875 mg SUBCUT WEEKLY 05/31/19 12/01/19 clopidogrel 75 mg PO QNOON 05/31/19 12/01/19 aspirin 325 mg tablet 325 mg PO DAILY 07/05/19 12/01/19 Allergies Allergy/AdvReac Type Severity Reaction Status Date / Time No Known Allergies Allergy Verified 01/20/20 01:22 Review of Systems Review of Systems: All systems reviewed & are unremarkable except as noted in HPI and below Constitutional: Constitutional: Denies chills, Denies fever(s) and Denies weakness ENT: Denies nasal congestion and Denies sore throat Gastrointestinal: Gastrointestinal: Reports abdominal pain, Reports constipation, Denies nausea and Denies vomiting [facility] Past Medical History Medical History (Updated 01/20/20 @ 02:37 by Timo Jack MD) Benign prostatic hyperplasia Coronary artery disease : Right coronary artery stent 2003. : Drug-eluting stent to proximal LAD 01/08/2019. End-stage renal disease on peritoneal dialysis : Patient of Dr. Vargas Love. GERD (gastroesophageal reflux disease) Hyperlipidemia Hypertension Indication present for endocarditis prophylaxis Mass of lung : Left upper lobe mass, stable on imaging. : Just monitoring; has not been biopsied. Multiple myeloma : On weekly subcutaneous injections. : Patient of Dr. Víctor Mitchell. Neuropathy associated with monoclonal protein Osteoarthritis Surgical History Surgical History History of herniorrhaphy History of tonsillectomy Hx of CABG S/P AVR (aortic valve replacement) Status post left partial knee replacement Family History Family History Father Acute myocardial infarction Mother DVT (deep venous thrombosis) Sibling Breast cancer Social History Social History Social History: Mr. Thomas is and lives with his in [place]. 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 He has enjoyed hiking for many years, and is he and his school to move to the [facility] sometime. He is a lifelong nonsmoker and denies alcohol and drug abuse. He has a modified code, no intubation. Smoking status: Never smoker Spiritual care concerns: No Agree to blood products: Yes Exam Narrative: Exam Narrative: GENERAL: ill-appearing, thin, and in mild distress. HEAD: Normocephalic, atraumatic. ENT: Mucous membranes moist. CHEST: Clear to auscultation. No respiratory distress. HD catheter right chest. HEART: Regular rate and rhythm. Norm
[2020-01-20] MEDS: MORPHINE SULFATE (*CRX) 4 MG/ML INJ IV PUSH ×3 (01:20→05:09)
[2020-01-20 01:22] LABS: Hematocrit 33.1 % (42.0-52.0); Hemoglobin 11.8 g/dL (14.0-18.0); Immature Granulocyte Absolute 0.01 K/mm3 (0.00-0.031); Immature Granulocyte Percent A 0.4 % (0-0.5); Lymphocytes Absolute Auto 0.26 K/mm3 (0.9-3.2); Lymphocytes Percent Auto 9.9 % (18.3-44.2); Mean Corpuscular HGB Conc 35.6 g/dl (32-36); Mean Corpuscular Volume 114.9 fl (80-100); Mean Platelet Volume 10.1 fl (7.4-10.4); Monocytes Absolute Auto 0.1 K/mm3 (0.1-0.6); Monocytes Percent Auto 3.1 % (2.6-8.5); Neutrophils Absolute Auto 2.3 K/mm3 (1.3-6.7); Neutrophils Percent Auto 86.6 % (45.5-73.1); Platelet Count Result 229 k/mm3 (150-375); Red Blood Count 2.88 M/mm3 (4.6-6.20); Red Cell Distribution Width 12.2 % (11.5-14.5); White Blood Count 2.6 K/mm3 (4.5-10.0)
[2020-01-20 01:57] LABS: Anion Gap 20 mmol/L (8-16); Blood Urea Nitrogen 78 mg/dL (9-20); Calcium 9.5 mg/dL (8.4-10.2); Carbon Dioxide 23 mmol/L (22-30); Chloride 92 mmol/L (98-107); Estimated CRCL calculation 5 ml/min; Estimated Glomerular Filt Rate 5; Glucose 126 mg/dL (75-110); Potassium 5.8 mmol/L (3.4-5.0); Sodium 135 mmol/L (137-145)
[2020-01-20 02:05] LABS: Prothrombin Time 13.6 Seconds (11.1-14.7)
[2020-01-20 02:07] LABS: Lactic Acid Reflex 1.2 mmol/L (0.7-2.1)
[2020-01-20] MEDS: HYDROmorphone HCL INJ (*CRX) 1 MG/ML SYR IV PUSH (03:15)
--- NOTE | 2020-01-20 04:10 | PC.NURSE ---
called [facility] to transport patient to residence. ETA [id number] - [id number]
[2020-01-20 04:24] VITALS: BP 158/61; PULSE 87; RESP 12; O2SAT 94
--- NOTE | 2020-01-20 04:33 | PC.NURSE ---
called [facility] for ETA update. ETA 20 minutes
[2020-01-20 05:09] VITALS: BP 172/75; PULSE 92; RESP 10; O2SAT 93
== END 2020-01-20 05:20 | disposition hospice, home (50) ==
PROVIDERS: Emergency Provider Emergency Medicine; PCP Family Medicine
DX: K63.1 Perforation of intestine (nontraumatic) (principal); C90.00 Multiple myeloma not having achieved remission; N40.0 Benign prostatic hyperplasia without lower urinary tract symptoms; I25.10 Atherosclerotic heart disease of native coronary artery without angina pectoris; Z95.5 Presence of coronary angioplasty implant and graft; I12.0 Hypertensive chronic kidney disease with stage 5 chronic kidney disease or end stage renal disease; N18.6 End stage renal disease; Z99.2 Dependence on renal dialysis; E78.5 Hyperlipidemia, unspecified; R91.8 Other nonspecific abnormal finding of lung field; Z95.1 Presence of aortocoronary bypass graft; Z95.2 Presence of prosthetic heart valve; Z96.652 Presence of left artificial knee joint; Z79.82 Long term (current) use of aspirin; R18.8 Other ascites; K44.9 Diaphragmatic hernia without obstruction or gangrene
CPT/HCPCS: 36415; 74176; 80048; 83605; 85025; 85610; 85730; 96374; 96375; 96376; 99284; J1170; J2270